=== PATIENT | female | born 1960 | race American Indian/Alaskan Native ===

== ENCOUNTER 2018-07-23 07:47 | Day surgery (SDC) | payer MEDICARE ==
[2018-07-23] MEDS ORDERED: LACTATED RINGERS 1,000 ML IV SCH (08:00)
[2018-07-23] MEDS ORDERED: ANCEF/STERILE WATER 2 GM/20 ML IV NR (08:00)
[2018-07-23] MEDS ORDERED: SUBLIMAZE IV PRN (09:00)
--- NOTE | 2018-07-23 09:01 | Anesthesia Day of Surgery ---
Anesthesia Day of Surgery - Day of Surgery Patient Examined: Yes Patient H&P Reviewed: Yes Patient is NPO: Yes
--- NOTE | 2018-07-23 09:02 | Anesthesia Consultation ---
Anesthesia Consult and Med Hx Date of service: 07/23/18 - Airway Anesthetic Teeth Evaluation: Dentures, Edentulous ROM Head & Neck: Adequate Mental/Hyoid Distance: Adequate Mallampati Class: Class I Intubation Access Assessment: Good - Pre-Operative Health Status ASA Pre-Surgery Classification: ASA2 Proposed Anesthetic Plan: General - Pulmonary Hx Smoking: Yes (1/2 PPD X 40 YRS) Hx Sleep Apnea: No (NATHALIA PRE SCREEN LOW RISK.) - Cardiovascular System Hx Hypertension: Yes (OFF MEDS X 1 MONTH) - Central Nervous System Hx Back Pain: Yes (WITH RIGHT LEG TINGLING) - Endocrine Hx Hypothyroidism: Yes (JUST WATCHING RIGHT NOW- NO MEDS YET) - Other Systems Hx Cancer: No
[2018-07-23] MEDS ORDERED: DIPRIVAN 10 MG/ML IV ONE (11:44)
[2018-07-23] MEDS ORDERED: SUBLIMAZE ONE (11:44)
--- NOTE | 2018-07-23 11:58 | Post Operative Note ---
Date of procedure: 07/23/18 Pre-op diagnosis: heme Post-op diagnosis: same Findings: as above Procedure: cysto rpgs Anesthesia: GETA Surgeon: AYDEE AMRQUEZ Estimated blood loss: none Pathology: list (bladder) Specimen disposition: to lab Condition: stable Disposition: PACU
--- NOTE | 2018-07-23 11:59 | Discharge Summary ---
Short Stay Discharge Plan Activity: other (no straining ) Weight Bearing Status: Full Weight Bearing Diet: regular, low fat, low cholesterol, low salt Special Instructions: other (inc fluids) Follow up with: PAMELA TORRES MD [Primary Care Provider] - 7 Days AYDEE MARQUEZ MD [Staff Physician] - 7 Days
[2018-07-23] MEDS ORDERED: XYLOCAINE MPF 2% ONE (12:10)
[2018-07-23] MEDS ORDERED: DECADRON ONE (12:10)
[2018-07-23] MEDS ORDERED: NEO SYNEPHRINE/NS Syringe(OR USE) IV ONE (12:10)
[2018-07-23] MEDS ORDERED: ZOFRAN ONE (12:10)
[2018-07-23] MEDS ORDERED: VERSED ONE (12:11)
[2018-07-23] MEDS ORDERED: OMNIPAQUE 300 MG/50 ML (CATH LAB) IV ONE (12:40)
[2018-07-23] MEDS ORDERED: TORADOL ONE (12:41)
--- NOTE | 2018-07-23 13:57 | Operative Report ---
PREOPERATIVE DIAGNOSIS: Hematuria. POSTOPERATIVE DIAGNOSIS: Hematuria. PROCEDURE: Cystoscopy, biopsy, retrograde. SURGEON: Rai Turpin MD ANESTHESIA: General. FINDINGS: This is a lady who had hematuria. She had some erythema, now presents for cystoscopy and biopsy. DESCRIPTION OF PROCEDURE: The patient was brought to the operating room and placed on the operating table. Following induction of anesthesia, placed in lithotomy position, prepped and draped in usual sterile fashion. Most of the erythema was gone. There was a prominent cyst at the bladder neck and the trigone away from the left orifice. This was excised and cauterized. Retrograde showed bilateral what appeared to be papillary necrosis, more on the right than the left. There was a little sluggish delay, but no persistent filling defects. This was bilaterally. At the conclusion, there was much better drainage. The patient tolerated the procedure well. 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 JOB# [id number] Adolfo/NAINA
[2018-07-23 14:22] VITALS: BP 132/78
--- NOTE | 2018-07-24 07:56 | Fluoroscopy Report ---
FLUOROSCOPY RETROGRADE UROGRAPHY: HISTORY: Hematuria. FINDINGS: Fluoroscopy was provided by radiology during retrograde urography by the urologist. 9 fluoroscopic images were captured. There is adequate filling of the ureters and intrarenal collecting systems with no filling defects or anatomic abnormalities identified. A bladder biopsy was performed per the operative note. Please correlate with the procedural report if needed. IMPRESSION: Retrograde pyelograms within normal limits.
== END 2018-07-23 07:48 | disposition home or self-care (01) ==
LOC: OR 07:47
PROVIDERS: ATTEND Urology
DX: N30.81 Other cystitis with hematuria (principal); N32.89 Other specified disorders of bladder; F17.210 Nicotine dependence, cigarettes, uncomplicated; E78.00 Pure hypercholesterolemia, unspecified; I10 Essential (primary) hypertension; E03.9 Hypothyroidism, unspecified; Z79.899 Other long term (current) drug therapy; Z98.890 Other specified postprocedural states
CPT/HCPCS: 52204; 74420; 88305; J0690; J1100; J1885; J2250; J2370; J2405; J2704; J3010; J7120; Q9967; 88342; C1758

== ENCOUNTER 2021-01-28 09:49 | Outpatient (CLI) | payer MEDICARE ==
--- NOTE | 2021-01-28 16:46 | Mammography Report ---
DIGITAL SCREENING MAMMOGRAM WITH CAD, 01/28/2021 CLINICAL INFORMATION / INDICATION: Routine screening mammography. SCREENING MAMMO TECHNIQUE: Digital bilateral 2D mammography was obtained in the craniocaudal and mediolateral obliqu e projections. This examination was interpreted with the benefit of Computer-Aided Detection analysis . COMPARISON: 10/05/2012 FINDINGS: Breast Density: There are scattered areas of fibroglandular density. No dominant mass, suspicious calcifications, or architectural distortion in either breast. A few tiny scattered nodular densities are largely unchanged. IMPRESSION: No mammographic evidence of malignancy. Follow up recommendation: Routine yearly BI-RADS Category 2: Benign. A "normal" or negative report should not discourage follow up or biopsy of a clinically significant f inding. A written summary of these findings will be mailed to the patient. The patient will be entered into a mammography reporting system which will generate a reminder letter for the patient's next appointmen t at the appropriate interval. The [employer] recommends yearly mammograms starting at age 40 and continuing as l luis as a woman is in good health. Breast MRI is recommended for women with an approximate 20-25% or greater lifetime risk of breast cancer, including women with a strong family history of breast or ova saida cancer or who have been treated for Hodgkin's disease. Signer Name: Júnior Wick MD Signed: 01/28/2021 4:41 PM Workstation Name: [id number]
== END 2021-01-28 09:50 | disposition home or self-care (01) ==
LOC: SPVWC 09:49
PROVIDERS: ATTEND Family Medicine
DX: Z12.31 Encounter for screening mammogram for malignant neoplasm of breast (principal)
CPT/HCPCS: 77067